=== PATIENT | female | born 1970 | race Caucasian/White ===

== ENCOUNTER 2020-12-26 08:58 | Outpatient (CLI) | payer OTHER | END 2020-12-26 08:59 | disposition home or self-care (01) | LOC: BICMAMMO 08:58 | PROVIDERS: ATTEND Family Medicine | DX: Z12.31 Encounter for screening mammogram for malignant neoplasm of breast (principal) | CPT/HCPCS: 77063; 77067 ==

== ENCOUNTER 2024-12-15 13:07 | Outpatient (CLI) | payer BC | END 2024-12-15 13:08 | disposition home or self-care (01) | LOC: BICMAMMO 13:07 | PROVIDERS: ATTEND Family Medicine | DX: Z12.31 Encounter for screening mammogram for malignant neoplasm of breast (principal) | CPT/HCPCS: 77063; 77067 ==